=== PATIENT | male | born 1945 | race Caucasian/White ===

== ENCOUNTER 2022-01-03 06:20 | Inpatient (IN) | payer MEDICARE ==
[2022-01-03] VITALS (8 sets, daily range): BP systolic 129–156; BP diastolic 66–80
[~2022-01-03] VITALS: Ht 182.9 cm; Wt 77.5 kg
[~2022-01-03 06:20] MED LIST: ASPI-1265 PO; ATOR40TA PO; CLOP75TA34 PO; METO50TA16 PO; NITR0.4T48 SL; VITA400C21 PO
[2022-01-03 06:57] LABS: BASOPHILS % (AUTO) 0.3 % (0-1); EOSINOPHILS # (AUTO) 0.1 X10'3 (0-0.9); EOSINOPHILS % (AUTO) 1.8 % (0-6); HEMATOCRIT 41.3 % (42.0-52.0); HEMOGLOBIN 14.6 g/dl (14.0-17.9); LYMPHOCYTES # (AUTO) 1.2 X10'3 (1.1-4.8); LYMPHOCYTES % (AUTO) 22.7 % (21-51); MEAN CORPUSCULAR HEMOGLOBIN 32.7 PG (27.0-31.0); MEAN CORPUSCULAR HGB CONC 35.5 g/dL (33.0-36.5); MEAN CORPUSCULAR VOLUME 92.3 FL (78-98); MEAN PLATELET VOLUME 6.2 FL (7.4-10.4); MONOCYTES # (AUTO) 0.5 X10'3 (0-0.9); NEUTROPHILS # (AUTO) 3.5 X10'3 (1.8-7.7); NEUTROPHILS % (AUTO) 66.2 % (42-75); PLATELET COUNT 160 X10'3 (140-440); RED BLOOD COUNT 4.47 X10'6 (4.70-6.10); RED CELL DISTRIBUTION WIDTH 12.4 % (11.5-14.5); WHITE BLOOD COUNT 5.4 X10'3 (4.5-11.0)
[2022-01-03 07:03] LABS: ALANINE AMINOTRANSFERASE 46 U/L (12-78); ALBUMIN 3.7 G/DL (3.4-5.0); ALBUMIN/GLOBULIN RATIO 1.1 (1.1-1.5); ALKALINE PHOSPHATASE 71 IU/L (46-116); ANION GAP 5 (8-16); ASPARTATE AMINO TRANSFERASE 23 U/L (10-37); BILIRUBIN,TOTAL 0.8 MG/DL (0.1-1.0); BLOOD UREA NITROGEN 12 MG/DL (7-18); BUN/CREATININE RATIO 14.8 (5.4-32.0); CALCIUM 8.9 MG/DL (8.5-10.1); CHLORIDE 110 MMOL/L (99-107); CREATININE 0.81 MG/DL (0.60-1.10); GLUCOSE 106 MG/DL (70-104); POTASSIUM 3.5 MMOL/L (3.5-5.1); SODIUM 145 MMOL/L (135-145); TOTAL CARBON DIOXIDE 30.1 MMOL/L (24-32); eGFR > 90 ML/MIN
[2022-01-03] MEDS ORDERED: PERFLUTREN PROTEIN-A MICROSPHR (Optison) 0.22 MG/ML 3ML VIAL IV ONE (08:10)
[2022-01-03] MEDS ORDERED: magnesium 2GM in 50ml NS 50 ML IV PRN (08:10)
[2022-01-03] MEDS ORDERED: magnesium Cl slow-release 64mg tablet PO PRN (08:10)
[2022-01-03] MEDS ORDERED: morphine 2 MG/ML inj. syringe IV PRN ×2 (08:10)
[2022-01-03] MEDS ORDERED: bisacodyl 10mg suppository rectal RC PRN (08:10)
[2022-01-03] MEDS ORDERED: HYDROcodone/acetaminophen 10/325mg tab PO PRN (08:10)
[2022-01-03] MEDS ORDERED: magnesium hydroxide 30ml (MOM) UD suspension PO PRN (08:10)
[2022-01-03] MEDS ORDERED: magnesium 4gm in 100ml NS 100 ML IV PRN (08:10)
[2022-01-03] MEDS ORDERED: metoprolol tartrate 1mg/ml inj IV PRN (08:10)
[2022-01-03] MEDS ORDERED: nitroGLYCERIN 0.4mg SUBLingual tab SL PRN (08:10)
[2022-01-03] MEDS ORDERED: normal saline 1000ml 1,000 ML IV SCH (08:10)
[2022-01-03] MEDS ORDERED: potassium CL 10mEq/100ml bag 100 ML IV PRN (08:10)
[2022-01-03] MEDS ORDERED: mag hydrox/Alum hydrox/simeth 30ml oral suspension PO PRN (08:10)
[2022-01-03] MEDS ORDERED: regadenoson 0.4mg/5ml syringe IV PRN (08:10)
[2022-01-03] MEDS ORDERED: HYDROcodone/acetaminophen 5mg/325mg tablet PO PRN (08:10)
[2022-01-03] MEDS ORDERED: ondansetron/PF 4mg/2ml inj IV PRN (08:10)
[2022-01-03] MEDS ORDERED: acetaminophen 650mg rectal suppository RC PRN (08:10)
[2022-01-03] MEDS ORDERED: diphenhydrAMINE 25mg capsule PO PRN (08:10)
[2022-01-03] MEDS ORDERED: acetaminophen 325mg tablet PO PRN ×2 (08:10)
[2022-01-03] MEDS ORDERED: aminophylline 250mg/10ml inj. IV PRN (08:10)
[2022-01-03] MEDS ORDERED: potassium Cl 20 mEq SR tablet PO PRN ×2 (08:10)
[2022-01-03 10:01] LABS: HEMOGLOBIN A1C 5.7 % (4.5-6.2)
[2022-01-03] MEDS ORDERED: PANT40TA54 PO (19:15)
[2022-01-03] MEDS ORDERED: heparin, porcine 5000 units/ml vial SQ SCH (20:00)
[2022-01-03] MEDS ORDERED: K and/or MAG REPLACEMENT MC SCH (20:00)
[2022-01-03] MEDS ORDERED: docusate sod 100mg capsule PO SCH (20:00)
== END 2022-01-03 20:00 | disposition home or self-care (01) | DRG 392 ==
LOC: ER 06:21 → ED HOLD 08:18
PROVIDERS: ADMIT Family Medicine; ATTEND Family Medicine
PROC: 4A02XM4 Measurement of Cardiac Total Activity, External Approach (ICD-10-PCS; principal; 2022-01-03)
PROC: 3E033HZ Introduction of Radioactive Substance into Peripheral Vein, Percutaneous Approach (ICD-10-PCS; 2022-01-03)
DX: K21.9 Gastro-esophageal reflux disease without esophagitis (principal); I25.119 Atherosclerotic heart disease of native coronary artery with unspecified angina pectoris; E78.5 Hyperlipidemia, unspecified; I10 Essential (primary) hypertension; Z20.822 Contact with and (suspected) exposure to COVID-19; I25.2 Old myocardial infarction; Z79.02 Long term (current) use of antithrombotics/antiplatelets; Z79.82 Long term (current) use of aspirin; Z79.899 Other long term (current) drug therapy; Z85.46 Personal history of malignant neoplasm of prostate; Z90.49 Acquired absence of other specified parts of digestive tract
CPT/HCPCS: 36415; 71045; 78452; 80053; 83036; 83880; 84484; 85025; 87635; 93005; 93017; 93306; 99285; A9500; G0378; J7030

== ENCOUNTER 2022-01-19 14:53 | Day surgery (SDC) | payer MEDICARE ==
[2022-01-18 09:21] LABS: APTT 27 SECONDS (22-32)
[2022-01-18 09:26] LABS: BASOPHILS % (AUTO) 0.4 % (0-1); EOSINOPHILS # (AUTO) 0.1 X10'3 (0-0.9); EOSINOPHILS % (AUTO) 1.3 % (0-6); HEMATOCRIT 42.9 % (42.0-52.0); HEMOGLOBIN 14.9 g/dl (14.0-17.9); LYMPHOCYTES # (AUTO) 0.9 X10'3 (1.1-4.8); LYMPHOCYTES % (AUTO) 20.1 % (21-51); MEAN CORPUSCULAR HEMOGLOBIN 32.3 PG (27.0-31.0); MEAN CORPUSCULAR HGB CONC 34.8 g/dL (33.0-36.5); MEAN CORPUSCULAR VOLUME 92.8 FL (78-98); MEAN PLATELET VOLUME 6.2 FL (7.4-10.4); MONOCYTES # (AUTO) 0.6 X10'3 (0-0.9); MONOCYTES % (AUTO) 12.5 % (2-12); NEUTROPHILS # (AUTO) 2.9 X10'3 (1.8-7.7); NEUTROPHILS % (AUTO) 65.7 % (42-75); PLATELET COUNT 168 X10'3 (140-440); RED BLOOD COUNT 4.62 X10'6 (4.70-6.10); RED CELL DISTRIBUTION WIDTH 12.8 % (11.5-14.5); WHITE BLOOD COUNT 4.5 X10'3 (4.5-11.0)
[2022-01-18 11:05] LABS: ALBUMIN 3.9 G/DL (3.4-5.0); ANION GAP 10 (8-16); BLOOD UREA NITROGEN 20 MG/DL (7-18); BUN/CREATININE RATIO 25.3 (5.4-32.0); CALCIUM 8.7 MG/DL (8.5-10.1); CHLORIDE 108 MMOL/L (99-107); CHOL/HDL RATIO 2.5 (0.00-4.99); CHOLESTEROL 135 MG/DL (0-200); CREATININE 0.79 MG/DL (0.60-1.10); GLUCOSE 104 MG/DL (70-104); HDL CHOLESTEROL 54 MG/DL (35-60); LDL CHOLESTEROL 59 MG/DL (50-100); POTASSIUM 3.7 MMOL/L (3.5-5.1); SODIUM 146 MMOL/L (135-145); TOTAL CARBON DIOXIDE 27.6 MMOL/L (24-32); TRIGLYCERIDES 115 MG/DL (20-135); eGFR > 90 ML/MIN
[2022-01-19] VITALS (8 sets, daily range): BP systolic 137–177; BP diastolic 77–99
[~2022-01-19] VITALS: Ht 185.4 cm; Wt 78.7 kg
[~2022-01-19 14:53] MED LIST changes: +PANT40TA54 PO
[2022-01-19] MEDS ORDERED: LORazepam 0.5 MG tablet PO PRN (15:15)
[2022-01-19] MEDS ORDERED: diphenhydrAMINE 25mg capsule PO PRN (15:15)
[2022-01-19] MEDS ORDERED: normal saline 1,000 ML IV SCH (15:15)
[2022-01-19] MEDS ORDERED: GABA300T25 (15:57)
[2022-01-19] MEDS ORDERED: MULT-31 PO (15:57)
[2022-01-19] MEDS ORDERED: METO25TA6 PO (15:57)
[2022-01-19] MEDS ORDERED: UBID100C16 PO (15:57)
[2022-01-19] MEDS ORDERED: ISOS30TA9 PO (15:57)
[2022-01-19] MEDS ORDERED: GINK120C PO (15:57)
[2022-01-19] MEDS ORDERED: nitroGLYCERIN-Tridil 50MG/D5W 250 ML IV ONE (17:52)
[2022-01-19] MEDS ORDERED: midazolam 1 mg/ML 2ml injection ONE (17:52)
[2022-01-19] MEDS ORDERED: verapamil 2.5 mg/ml inj IV ONE (17:52)
[2022-01-19] MEDS ORDERED: fentaNYL/PF 50MCG/1 ML 2ML syringe ONE (17:52)
[2022-01-19] MEDS ORDERED: LIDOcaine 1% (10mg/ml)w/preservative injection 20ml MDV ONE (17:52)
[2022-01-19] MEDS ORDERED: heparin 1,000unit/ml 10ml vial 10 ML ONE (17:52)
[2022-01-19] MEDS ORDERED: iohexol 350MG/ML 100ml bottle IV ONE ×2 (17:53→18:34)
== END 2022-01-19 21:00 | disposition home or self-care (01) ==
LOC: SSTAY O 14:53
PROVIDERS: ATTEND Internal Medicine Interventional Cardiology
DX: R07.89 Other chest pain (principal); I25.10 Atherosclerotic heart disease of native coronary artery without angina pectoris; I10 Essential (primary) hypertension; G47.33 Obstructive sleep apnea (adult) (pediatric); E78.49 Other hyperlipidemia; I25.2 Old myocardial infarction; I35.1 Nonrheumatic aortic (valve) insufficiency; Z79.82 Long term (current) use of aspirin; Z79.899 Other long term (current) drug therapy; Z85.46 Personal history of malignant neoplasm of prostate
CPT/HCPCS: 36415; 80048; 80061; 85025; 85610; 85730; 93005; 93458; 99152; C1769; C1894; J1644; J2250; J3010; J3490; Q9967; A4620; A5120

== ENCOUNTER 2022-04-20 11:47 | Inpatient (IN) | payer MEDICARE ==
[~2022-04-20] VITALS: Ht 180.3 cm; Wt 77.3 kg
[~2022-04-20 11:47] MED LIST changes: +ATOR-2 PO; -ATOR40TA PO; -CLOP75TA34 PO; +GABA300C PO; +GINK120C PO; +HYDR-3972 PO; +MULT-31 PO; -NITR0.4T48 SL; -PANT40TA54 PO; +UBID100C16 PO; -VITA400C21 PO
[2022-04-20 12:56] LABS: BASOPHILS % (AUTO) 0.2 % (0-1); EOSINOPHILS # (AUTO) 0.1 X10'3 (0-0.9); EOSINOPHILS % (AUTO) 0.6 % (0-6); HEMATOCRIT 43.1 % (42.0-52.0); HEMOGLOBIN 14.6 g/dl (14.0-17.9); LYMPHOCYTES # (AUTO) 0.9 X10'3 (1.1-4.8); LYMPHOCYTES % (AUTO) 7.1 % (21-51); MEAN CORPUSCULAR HEMOGLOBIN 30.2 PG (27.0-31.0); MEAN CORPUSCULAR HGB CONC 33.9 g/dL (33.0-36.5); MEAN CORPUSCULAR VOLUME 89.1 FL (78-98); MEAN PLATELET VOLUME 6.7 FL (7.4-10.4); MONOCYTES # (AUTO) 0.7 X10'3 (0-0.9); MONOCYTES % (AUTO) 5.9 % (2-12); NEUTROPHILS # (AUTO) 10.7 X10'3 (1.8-7.7); NEUTROPHILS % (AUTO) 86.2 % (42-75); PLATELET COUNT 312 X10'3 (140-440); RED BLOOD COUNT 4.84 X10'6 (4.70-6.10); WHITE BLOOD COUNT 12.4 X10'3 (4.5-11.0)
[2022-04-20 13:16] LABS: ALANINE AMINOTRANSFERASE 29 U/L (12-78); ALBUMIN 3.8 G/DL (3.4-5.0); ALBUMIN/GLOBULIN RATIO 1.2 (1.1-1.5); ALKALINE PHOSPHATASE 78 IU/L (46-116); ANION GAP 11 (8-16); ASPARTATE AMINO TRANSFERASE 21 U/L (10-37); BILIRUBIN,TOTAL 0.7 MG/DL (0.1-1.0); BLOOD UREA NITROGEN 19 MG/DL (7-18); BUN/CREATININE RATIO 23.2 (5.4-32.0); CALCIUM 9.1 MG/DL (8.5-10.1); CHLORIDE 108 MMOL/L (99-107); CREATININE 0.82 MG/DL (0.60-1.10); GLUCOSE 147 MG/DL (70-104); POTASSIUM 3.6 MMOL/L (3.5-5.1); SODIUM 143 MMOL/L (135-145); TOTAL CARBON DIOXIDE 24.1 MMOL/L (24-32); TOTAL PROTEIN 7.1 G/DL (6.4-8.2); eGFR > 90 ML/MIN
--- NOTE | 2022-04-20 15:25 | NUR ---
patient received in bed 6,Dr. Bah at bedside.
[2022-04-20] MEDS ORDERED: nitroGLYCERIN 1gm ointment UD TP ONE (15:30)
[2022-04-20] MEDS ORDERED: magnesium 4gm in 100ml NS 100 ML IV PRN (16:25)
[2022-04-20] MEDS ORDERED: morphine 2 MG/ML inj. syringe IV PRN (16:25)
[2022-04-20] MEDS ORDERED: magnesium 2GM in 50ml NS 50 ML IV PRN (16:25)
[2022-04-20] MEDS ORDERED: ondansetron/PF 4mg/2ml inj IV PRN (16:25)
[2022-04-20] MEDS ORDERED: potassium CL 10mEq/100ml bag 100 ML IV PRN (16:25)
[2022-04-20] MEDS ORDERED: magnesium Cl slow-release 64mg tablet PO PRN (16:25)
[2022-04-20] MEDS ORDERED: POTASSIUM BICARB 20meq eff tab 20 MEQ TABLET.EFF PO PRN (16:25)
[2022-04-20 16:40] LABS: MAGNESIUM 2.1 MG/DL (1.5-2.4)
[2022-04-20] MEDS ORDERED: NITR0.4T48 SL (17:28)
[2022-04-20] MEDS ORDERED: heparin 10,000 units/1 ML INJ IV ONE (17:55)
[2022-04-20] MEDS ORDERED: heparin 10,000 units/1 ML INJ IV PRN (17:55)
--- NOTE | 2022-04-20 18:08 | NUR ---
HEPARIN DRIP NOT IN THE [facility].PHARMACY CALLED.
[2022-04-20] MEDS: heparin 25,000 UNIT/250ml bag 250 ML IV SCH (18:32)
[2022-04-20 18:35] LABS: BASOPHILS % (AUTO) 0.6 % (0-1); EOSINOPHILS # (AUTO) 0.1 X10'3 (0-0.9); EOSINOPHILS % (AUTO) 0.7 % (0-6); HEMATOCRIT 41.9 % (42.0-52.0); HEMOGLOBIN 14.7 g/dl (14.0-17.9); LYMPHOCYTES # (AUTO) 1.4 X10'3 (1.1-4.8); LYMPHOCYTES % (AUTO) 17.9 % (21-51); MEAN CORPUSCULAR HEMOGLOBIN 31.5 PG (27.0-31.0); MEAN CORPUSCULAR HGB CONC 35.1 g/dL (33.0-36.5); MEAN CORPUSCULAR VOLUME 89.8 FL (78-98); MEAN PLATELET VOLUME 6.6 FL (7.4-10.4); MONOCYTES # (AUTO) 0.6 X10'3 (0-0.9); MONOCYTES % (AUTO) 8.2 % (2-12); NEUTROPHILS # (AUTO) 5.6 X10'3 (1.8-7.7); NEUTROPHILS % (AUTO) 72.6 % (42-75); PLATELET COUNT 263 X10'3 (140-440); RED BLOOD COUNT 4.66 X10'6 (4.70-6.10); RED CELL DISTRIBUTION WIDTH 12.2 % (11.5-14.5); WHITE BLOOD COUNT 7.7 X10'3 (4.5-11.0)
[2022-04-20 18:41] LABS: APTT 23 SECONDS (22-32)
[2022-04-20] MEDS: K and/or MAG REPLACEMENT MC SCH (20:00)
--- NOTE | 2022-04-20 21:07 | NUR ---
Patient in room ED 6. I have received report from NEY MORALES IN ER and had the opportunity to ask questions and will assume patient care when patient arrives on the unit.
[2022-04-20 21:30] VITALS: BP 146/88
[2022-04-20] MEDS: Melatonin 3mg tablet PO SCH (22:22)
[2022-04-21 01:06] LABS: BASOPHILS % (AUTO) 0.4 % (0-1); EOSINOPHILS # (AUTO) 0.2 X10'3 (0-0.9); HEMATOCRIT 39.8 % (42.0-52.0); HEMOGLOBIN 13.9 g/dl (14.0-17.9); LYMPHOCYTES # (AUTO) 1.3 X10'3 (1.1-4.8); LYMPHOCYTES % (AUTO) 16.5 % (21-51); MEAN CORPUSCULAR HEMOGLOBIN 31.3 PG (27.0-31.0); MEAN CORPUSCULAR VOLUME 89.4 FL (78-98); MONOCYTES # (AUTO) 0.8 X10'3 (0-0.9); MONOCYTES % (AUTO) 9.8 % (2-12); NEUTROPHILS # (AUTO) 5.7 X10'3 (1.8-7.7); NEUTROPHILS % (AUTO) 71.3 % (42-75); PLATELET COUNT 269 X10'3 (140-440); RED BLOOD COUNT 4.45 X10'6 (4.70-6.10); RED CELL DISTRIBUTION WIDTH 12.3 % (11.5-14.5)
[2022-04-21 01:07] LABS: ALBUMIN 3.3 G/DL (3.4-5.0); ANION GAP 13 (8-16); BLOOD UREA NITROGEN 16 MG/DL (7-18); CHLORIDE 108 MMOL/L (99-107); CREATININE 0.64 MG/DL (0.60-1.10); GLUCOSE 132 MG/DL (70-104); POTASSIUM 3.2 MMOL/L (3.5-5.1); SODIUM 144 MMOL/L (135-145); TOTAL CARBON DIOXIDE 23.1 MMOL/L (24-32); eGFR > 90 ML/MIN
[2022-04-21 01:29] LABS: APTT 41 SECONDS (22-32)
[2022-04-21 02:00] VITALS: BP 122/77
[2022-04-21 06:00] VITALS: BP 134/93
--- NOTE | 2022-04-21 06:19 | NUR ---
Problems reprioritized. Patient report given, questions answered & plan of care reviewed with SHARIFA MORALES.
--- NOTE | 2022-04-21 07:01 | NUR ---
Patient in room PCU 3017. I have received report and had the opportunity to ask questions and assume patient care.
--- NOTE | 2022-04-21 07:47 | NUR ---
PAGER ID: [phone] MESSAGE: HALI TABARES DELFINMIRTA RM [id number] CRITICAL PTT OF 98. HEPARIN DRIP ON HOLD PER PROTOCOL THANK YOU, AMY MORALES
[2022-04-21] MEDS: K and/or MAG REPLACEMENT MC SCH ×2 (08:00→20:00)
[2022-04-21] MEDS: heparin 25,000 UNIT/250ml bag 250 ML IV SCH (10:24)
[2022-04-21 11:00] VITALS: BP 132/82
--- NOTE | 2022-04-21 13:28 | NUR ---
PAGER ID: [phone] MESSAGE: HALI GIBBS [id number] CRITICAL PTT [phone]! PLEASE CALL THANK YOU AMY MORALES
--- NOTE | 2022-04-21 15:02 | NUR ---
PER OFFICE INSPECTOR ASHLEY WHO SPOKE TO YOLANDA CAMPOS. HOLD HEPARIN, DR CORREIA TO ROUND TODAY, DISCUSS WITH DR CORREIA AT THAT TIME.
[2022-04-21 15:16] VITALS: BP 114/80
[2022-04-21] MEDS: POTASSIUM BICARB 20meq eff tab 20 MEQ TABLET.EFF PO PRN ×2 (16:29→21:07)
[2022-04-21 18:00] VITALS: BP 110/74
--- NOTE | 2022-04-21 18:25 | NUR ---
Problems reprioritized. Patient report given, questions answered & plan of care reviewed.
--- NOTE | 2022-04-21 18:42 | NUR ---
Patient in room PCU 3017. I have received report from AMY MORALES and had the opportunity to ask questions and assume patient care.
[2022-04-21] MEDS: Melatonin 3mg tablet PO SCH (20:55)
[2022-04-21] MEDS: metoprolol tartrate 50mg tablet PO SCH (20:56)
[2022-04-21 22:00] VITALS: BP 98/64
[2022-04-22 02:00] VITALS: BP 106/77
[2022-04-22] MEDS ORDERED: LIDOcaine 1% 30ml preserv. free vial ONE (05:52)
[2022-04-22] MEDS ORDERED: fentaNYL/PF 50MCG/1 ML 2ML syringe ONE (05:52)
[2022-04-22] MEDS ORDERED: midazolam 1 mg/ML 2ml injection ONE ×2 (05:52→06:32)
[2022-04-22] MEDS ORDERED: iohexol 350 MG/ML 50ML vial IV ONE (05:52)
[2022-04-22] MEDS ORDERED: heparin 1,000unit/ml 10ml vial 0 ML ONE (05:53)
[2022-04-22] MEDS ORDERED: nitroGLYCERIN-Tridil 50MG/D5W 0 ML IV ONE (05:53)
[2022-04-22] MEDS ORDERED: verapamil 2.5 mg/ml inj IV ONE (05:53)
[2022-04-22] MEDS ORDERED: iohexol 350 MG/1 ML 200ml bottle ONE (05:57)
[2022-04-22 06:11] VITALS: BP 122/81
[2022-04-22 07:00] VITALS: BP 122/81
[2022-04-22 07:48] LABS: BASOPHILS % (AUTO) 0.3 % (0-1); EOSINOPHILS # (AUTO) 0.1 X10'3 (0-0.9); EOSINOPHILS % (AUTO) 1.3 % (0-6); HEMATOCRIT 41.8 % (42.0-52.0); HEMOGLOBIN 14.3 g/dl (14.0-17.9); LYMPHOCYTES # (AUTO) 0.8 X10'3 (1.1-4.8); LYMPHOCYTES % (AUTO) 11.2 % (21-51); MEAN CORPUSCULAR HEMOGLOBIN 30.5 PG (27.0-31.0); MEAN CORPUSCULAR HGB CONC 34.1 g/dL (33.0-36.5); MEAN CORPUSCULAR VOLUME 89.5 FL (78-98); MEAN PLATELET VOLUME 6.4 FL (7.4-10.4); MONOCYTES # (AUTO) 0.7 X10'3 (0-0.9); MONOCYTES % (AUTO) 9.8 % (2-12); NEUTROPHILS # (AUTO) 5.7 X10'3 (1.8-7.7); NEUTROPHILS % (AUTO) 77.4 % (42-75); PLATELET COUNT 271 X10'3 (140-440); RED BLOOD COUNT 4.67 X10'6 (4.70-6.10); RED CELL DISTRIBUTION WIDTH 12.6 % (11.5-14.5); WHITE BLOOD COUNT 7.4 X10'3 (4.5-11.0)
[2022-04-22] MEDS ORDERED: aspirin 81mg tab.chew PO SCH (08:00)
[2022-04-22] MEDS: K and/or MAG REPLACEMENT MC SCH (08:00)
[2022-04-22] MEDS ORDERED: non-formulary drug (Atorvastatin Calcium 1 TAB) PO SCH (08:00)
[2022-04-22 08:08] LABS: ALBUMIN 3.3 G/DL (3.4-5.0); ANION GAP 9 (8-16); BLOOD UREA NITROGEN 12 MG/DL (7-18); BUN/CREATININE RATIO 15.2 (5.4-32.0); CALCIUM 8.6 MG/DL (8.5-10.1); CHLORIDE 110 MMOL/L (99-107); CREATININE 0.79 MG/DL (0.60-1.10); GLUCOSE 123 MG/DL (70-104); MAGNESIUM 2.1 MG/DL (1.5-2.4); POTASSIUM 3.9 MMOL/L (3.5-5.1); SODIUM 143 MMOL/L (135-145); TOTAL CARBON DIOXIDE 23.8 MMOL/L (24-32); eGFR > 90 ML/MIN
[2022-04-22] MEDS: metoprolol tartrate 50mg tablet PO SCH (08:41)
[2022-04-22] MEDS ORDERED: isosorbide mononitrate 30mg tab.SR.24H PO SCH (09:55)
--- NOTE | 2022-04-22 10:08 | NUR ---
Patient in room PCU 3017. I have received report from SEAN MORALES and had the opportunity to ask questions and assume patient care.
[2022-04-22] MEDS ORDERED: atorvastatin 20mg tablet PO SCH (10:15)
[2022-04-22] MEDS ORDERED: clopidogrel 75mg tablet PO SCH (11:15)
[2022-04-22 11:43] VITALS: BP 110/69
[2022-04-22] MEDS ORDERED: ISOS30TA84 PO (13:24)
[2022-04-22] MEDS ORDERED: CLOP75TA34 PO (13:24)
--- NOTE | 2022-04-22 13:59 | NUR ---
patient returned to floor in stable condition from [employer]. surgical incision to right groin CDI. No hematoma. Patient flat for 6hrs. Able to sit up at 1300hrs site remains stable. seen by Dr gomez and Jennifer REDD, is for discharge when patient can ambulate.
--- NOTE | 2022-04-22 16:20 | NUR ---
patient able to ambulate cath site stable. All DC instructions given to patient and spouse. Patient DC hpme in private car to [facility] in stable condition
--- NOTE | 2022-04-29 08:08 | NUR ---
Case Management DC follow up:Spoke with Patient via telephone.S/P: Patient Reports:Denies:Acute/continuous chest pain, emergent SOB, resp distress,dyspnea, s/s of infection at cath puncture site, warmth, redness,drainage, fever, chills,hematochezia, melena,unexplained bruising, bleeding.Verbalizes compliance with aftercare.Verbalizes understanding of s/s that warrant 9-11/ER visit for further evaluation.Verbalizes understanding of new Rx: why prescribed;continues/resumes current Rx as ordered.Declines follow up with his PCP; however,has scheduled follow up with .Verbalizes that the staff were wonderful in their care.Needs met, questions/concerns addressed at DC.No further questions/concerns regarding recent hospital stay and/or DC status.
== END 2022-04-22 15:00 | disposition home or self-care (01) | DRG 282 ==
LOC: ER 11:47 → ED HOLD 16:23 → PCU 3S 21:24
PROVIDERS: ADMIT Internal Medicine; ATTEND Internal Medicine
PROC: 4A023N7 Measurement of Cardiac Sampling and Pressure, Left Heart, Percutaneous Approach (ICD-10-PCS; principal; 2022-04-22)
PROC: B2111ZZ Fluoroscopy of Multiple Coronary Arteries using Low Osmolar Contrast (ICD-10-PCS; 2022-04-22)
PROC: B2131ZZ Fluoroscopy of Multiple Coronary Artery Bypass Grafts using Low Osmolar Contrast (ICD-10-PCS; 2022-04-22)
DX: I25.119 Atherosclerotic heart disease of native coronary artery with unspecified angina pectoris (principal); I21.4 Non-ST elevation (NSTEMI) myocardial infarction; I10 Essential (primary) hypertension; R77.8 Other specified abnormalities of plasma proteins; E78.5 Hyperlipidemia, unspecified; Z95.1 Presence of aortocoronary bypass graft; I25.2 Old myocardial infarction; Z79.899 Other long term (current) drug therapy; Z90.49 Acquired absence of other specified parts of digestive tract; Z79.82 Long term (current) use of aspirin
CPT/HCPCS: 36415; 71045; 80048; 80053; 82948; 83735; 83880; 84484; 85025; 85610; 85730; 87081; 93005; 93306; 93455; 99152; 99285; A4620; A6258; C1769; G0378; J1644; J2250; J3010; J3490; Q9967

== ENCOUNTER → 2024-10-22 | Day surgery (SDC) | payer MEDICARE, OTHER ==
[2024-10-17 14:25] LABS: BASOPHILS # (AUTO) 0.1 X10'3 (0-0.2); EOSINOPHILS # (AUTO) 0.1 X10'3 (0-0.9); EOSINOPHILS % (AUTO) 2.1 % (0-6); LYMPHOCYTES # (AUTO) 1.4 X10'3 (1.1-4.8); LYMPHOCYTES % (AUTO) 22.8 % (21-51); MEAN CORPUSCULAR HEMOGLOBIN 32.8 PG (27.0-31.0); MEAN CORPUSCULAR VOLUME 93.7 FL (78-98); MEAN PLATELET VOLUME 6.7 FL (7.4-10.4); MONOCYTES # (AUTO) 0.8 X10'3 (0-0.9); MONOCYTES % (AUTO) 12.9 % (2-12); NEUTROPHILS # (AUTO) 3.9 X10'3 (1.8-7.7); NEUTROPHILS % (AUTO) 61.2 % (42-75); PRE OP HEMATOCRIT 45.4 % (42.0-52.0); PRE OP HEMOGLOBIN 15.9 g/dL (14.0-17.9); PRE OP PLATELET COUNT 196 X10'3 (140-440); PRE OP WHITE BLOOD COUNT 6.3 10'3 (4.8-10.8); RED BLOOD COUNT 4.84 X10'6 (4.70-6.10); RED CELL DISTRIBUTION WIDTH 12.1 % (11.5-14.5)
[2024-10-22] VITALS (16 sets, daily range): BP systolic 108–148; BP diastolic 63–86; PULSE 16–60; RESP 8–19; TEMP 97.5; O2SAT 94–98
[~2024-10-22] VITALS: Ht 180.3 cm; Wt 82.5 kg
[~2024-10-22] MED LIST changes: +BUPIVAcaine/PF 2.5mg/ml (0.25%) 10ml vial ONE; +CALCIUM; +DOCUMENT DATE & TIME OF BETA-BLOCKER PO ONE; +EZET10TA48 PO; -GABA300C PO; -GINK120C PO; +GINK120C3 PO; +GLUC-95 PO; -HYDR-3972 PO; +LIDOcaine 2% (20mg/ml) 5ml vial ONE; +NITR0.4T48 SL; +TUMERIC; -UBID100C16 PO; +UBID200C35 PO; +VITAMIN C; +VITAMIN D; +VITAMIN E; +acetaminophen 1,000mg/100ml IV 100 ML IV ONE; +fentaNYL/PF 50MCG/1 ML 2ML syringe ONE; +midazolam 1 mg/ML 2ml injection ONE; +propofol inj 20 ML IV ONE
[2024-10-22] MEDS: ceFAZolin 2gm in dextrose, iso 50 ML IV ONE (05:30)
[2024-10-22] MEDS: famotidine 20mg tablet PO ONE (06:39)
[2024-10-22] MEDS: ringers solution, lacted 1,000 ML IV SCH (06:40)
[2024-10-22 07:07] LABS: ALANINE AMINOTRANSFERASE 48 U/L (12-78); ALBUMIN 3.7 G/DL (3.4-5.0); ALBUMIN/GLOBULIN RATIO 1.2 (1.1-1.5); ALKALINE PHOSPHATASE 57 IU/L (46-116); ANION GAP 9 (8-16); ASPARTATE AMINO TRANSFERASE 35 U/L (10-37); BILIRUBIN,TOTAL 1.1 MG/DL (0.1-1.0); BLOOD UREA NITROGEN 16 MG/DL (7-18); BUN/CREATININE RATIO 18.4 (10.0-20.0); CALCIUM 8.6 MG/DL (8.5-10.1); CHLORIDE 107 MMOL/L (99-107); CREATININE 0.87 MG/DL (0.60-1.10); GLUCOSE 94 MG/DL (70-104); POTASSIUM 3.7 MMOL/L (3.5-5.1); SODIUM 142 MMOL/L (135-145); TOTAL CARBON DIOXIDE 25.7 MMOL/L (24-32); TOTAL PROTEIN 6.8 G/DL (6.4-8.2); eCRCL 76 ML/MIN; eGFR 84 ML/MIN
== END | disposition home or self-care (01) ==
LOC: PAS 05:46
PROVIDERS: ATTEND Orthopaedic Surgery Hand Surgery
DX: G56.03 Carpal tunnel syndrome, bilateral upper limbs (principal); I10 Essential (primary) hypertension; I25.10 Atherosclerotic heart disease of native coronary artery without angina pectoris; E78.5 Hyperlipidemia, unspecified; G47.33 Obstructive sleep apnea (adult) (pediatric); G62.9 Polyneuropathy, unspecified; M19.90 Unspecified osteoarthritis, unspecified site; Z79.82 Long term (current) use of aspirin; Z79.891 Long term (current) use of opiate analgesic; Z79.899 Other long term (current) drug therapy; Z90.79 Acquired absence of other genital organ(s); Z95.1 Presence of aortocoronary bypass graft; Z98.890 Other specified postprocedural states; Z82.49 Family history of ischemic heart disease and other diseases of the circulatory system
CPT/HCPCS: 36415; 64721; 80053; 85025; A4215; A6449; J0131; J0690; J2003; J2250; J2704; J3010; J3490; J7030; J7120; Z7506; Z7512; Z7610